=== PATIENT | male | born 1975 | race Caucasian/White ===

== ENCOUNTER 2024-04-24 23:22 | Emergency (ER) | payer BC ==
[~2024-04-24] VITALS: Ht 180.3 cm; Wt 99.3 kg
[2024-04-24 23:48] VITALS: BP 113/67; PULSE 67; RESP 16; TEMP 97.6; O2SAT 99
[2024-04-25 00:38] LABS: APPEARANCE,URINE CLEAR (CLEAR); BILIRUBIN,URINE NEGATIVE (NEGATIVE); BLOOD, URINE NEGATIVE (NEGATIVE); COLOR,URINE YELLOW (YELLOW); LEUKOCYTE ESTERASE ,URINE NEGATIVE (NEGATIVE); NITRITE, URINE NEGATIVE (NEGATIVE); PROTEIN,URINE NEGATIVE (NEGATIVE); UGLUCOSE NEGATIVE (NEGATIVE); UROBILINOGEN,URINE 0.2 EU/dL (0.2 - 1)
[2024-04-25 00:56] LABS: BACTERIA,URINE OCCASSIONAL /HPF (None Seen); RBC,URINE 0-5 /HPF (0-5); SQUAMOUS EPITHELIAL CELL,UR 0-3 (FEW) /LPF (0-3 (FEW)); WBC,URINE 0-5 /HPF (0-5)
[2024-04-25 01:28] VITALS: BP 113/67; PULSE 67; RESP 16; TEMP 97.6; O2SAT 99
== END 2024-04-25 01:45 | disposition home or self-care (01) ==
LOC: MED 23:22
DX: N50.811 Right testicular pain (principal); R10.9 Unspecified abdominal pain
CPT/HCPCS: 76870; 81001; 99284